=== PATIENT | female | born 1985 | race Caucasian/White ===

== ENCOUNTER 2017-12-07 13:43 | Emergency (ER) | payer BC ==
[~2017-12-07] VITALS: Ht 160 cm; Wt 90.7 kg
[~2017-12-07 13:43] MED LIST: ACET325 PO; ALBU90OI INH; BENZ100A PO; CRUTCH4 USE; KETO10 PO; MEDR150I IM; NAPR500 PO; PHENA200 PO; PRED20 PO; PROCODE120 PO; PRODEXEL PO; Pseudoephedrine30 MG PO; RXPHEN200 PO; SULTRIDS PO; Zithromax250 MG PO
[2017-12-07] MEDS ORDERED: CYCL10 PO (14:18)
[2017-12-07] MEDS ORDERED: Norco 5-325 Ta1 EACH PO (14:18)
[2017-12-07] MEDS ORDERED: IBUP600 PO (14:18)
== END 2017-12-07 14:31 | disposition home or self-care (01) ==
LOC: ER 13:43
DX: M54.16 Radiculopathy, lumbar region (principal); Z79.899 Other long term (current) drug therapy
CPT/HCPCS: 99283

== ENCOUNTER 2018-09-28 23:17 | Emergency (ER) | payer MEDICAID ==
[~2018-09-28] VITALS: Ht 160 cm; Wt 90.7 kg
[~2018-09-28 23:17] MED LIST changes: +CYCL10 PO; +IBUP600 PO; +Norco 5-325 Ta1 EACH PO
[2018-09-29] MEDS ORDERED: LIDO700A20 TOP (00:30)
[2018-09-29] MEDS ORDERED: Voltaren100 GM TOP (00:30)
== END 2018-09-29 00:46 | disposition home or self-care (01) ==
LOC: ER 23:17
DX: M54.41 Lumbago with sciatica, right side (principal)
CPT/HCPCS: 96372; 99283-25; J1885

== ENCOUNTER → 2018-12-04 | Outpatient (CLI) | payer OTHER ==
[~2018-12-04] MED LIST changes: +LIDO700A20 TOP; +Voltaren100 GM TOP
[2018-12-08 15:07] LABS: HPV 16 Negative (Negative); HPV 18 Negative (Negative); HPV OTHER HR TYPES Positive (Negative)
== END | disposition home or self-care (01) ==
LOC: LAB SHORT 16:50 → LAB 16:50
PROVIDERS: Obstetrics & Gynecology
DX: Z01.419 Encounter for gynecological examination (general) (routine) without abnormal findings (principal)
CPT/HCPCS: 87624; 87625; G0123